=== PATIENT | male | born 1965 ===

== ENCOUNTER → 2021-03-16 | Emergency (ER) | payer MEDICAID, OTHER ==
[~2021-03-16] VITALS: Ht 30.5 cm; Wt 72.6 kg
[~2021-03-16] MED LIST: ACETAMINOPHEN 500 MG TAB PO PRN; ALBUTEROL SULF HFA 90MCG INH 200DOSE IN PRN; ASCORBIC ACID 1,000 MG TAB PO SCH; AZITHROMYCIN 500MG/ 250ML 250 ML IV ONE; AZITHROMYCIN 500MG/ 250ML 250 ML IV SCH; CHOLECALCIFEROL (VITD3) 2,000 UNIT CAP/TAB PO SCH; DexAMETHasone SOD PHOS 10MG/1ML VIAL INJ IV SCH; ENOXAPARIN SOD 40 MG/0.4 ML SYRINGE SC SCH; MORPHINE SULFATE INJECTION 2 MG/ML SYRG IV PRN; NITROGLYCERIN 0.4 MG SL TAB SL PRN; ONDANSETRON HCL 4 MG/2 ML VIAL IV PRN; ONDANSETRON HCL 4 MG/2 ML VIAL ONE; PANTOPRAZOLE 40 MG TAB PO SCH; REMDESIVIR 100mg 100 MG in SODIUM CHL 0.9% 230 ML IV SCH; REMDESIVIR 200 MG in NS 210ml LOADING DOSE ADULT IV ONE; REMDESIVIR PER PHARMACY 0 ML IV SCH; TEMAZEPAM 15 MG CAP PO PRN; ZINC SULFATE 220mg CAP or TAB PO SCH; cefTRIAXone 1GM/50ML D5W 50 ML IV ONE; cefTRIAXone 1GM/50ML D5W 50 ML IV SCH; methylPREDNISolone SOD SUCC 125 MG/2 ML VL IV ONE
[2021-03-16 15:17] VITALS: BP 150/78
[2021-03-16 17:08] LABS: Basophils # (auto) 0 10 ^3/uL (0-0.2); Basophils % (auto) 0.3 % (0.0-2.0); Eosinophils # (auto) 0 10 ^3/uL (0-0.8); Hemoglobin 14.8 g/dL (13.5-17.5); Lymphocytes # (auto) 1.1 10 ^3/uL (0.4-5.4); Lymphocytes % (auto) 19.8 % (10.0-50.0); Mean Corpuscular Hemoglobin 29.9 pg (28.0-32.0); Mean Corpuscular Hgb Conc. 33.6 g/dL (32.0-36.0); Mean Corpuscular Volume 88.9 fL (80.0-100.0); Monocytes # (auto) 0.4 10 ^3/uL (0-1.3); Monocytes % (auto) 7.8 % (0.0-12.0); Neutrophils % (auto) 72.1 % (37.0-80.0); Nucleated Red Blood Cells % 0.2 %; Red Blood Cells 4.95 10^6/uL (4.5-5.90); Red Cell Distribution Width 13.8 % (11.8-14.3); White Blood Cell 5.5 10^3/uL (4.4-10.8)
[2021-03-16 17:21] LABS: Albumin 3.3 g/dL (3.4-5.0); Calcium 8.1 mg/dL (8.5-10.1); Potassium 4.1 mmol/L (3.5-5.1)
[2021-03-16 17:26] LABS: BUN/Creatinine Ratio 20.2; Bilirubin, Total 0.3 mg/dL (0.2-1.0); Total Protein 6.8 g/dL (6.4-8.2)
== END | disposition left against medical advice (07) ==
LOC: ER 15:10 → TELE 15:11 → UNDOADMIN 15:11 → UNDODISIN 20:30 → TELE 21:05 → UNDOADMIN 21:05 → UNDODISIN 21:06
DX: U07.1 COVID-19 (principal); J96.00 Acute respiratory failure, unspecified whether with hypoxia or hypercapnia; F41.9 Anxiety disorder, unspecified
CPT/HCPCS: 36415; 71045; 80053; 82728; 84484; 85025; 85379; 86141; 87426; 93005; G0378